=== PATIENT | female | born 1935 ===

== ENCOUNTER 2023-01-26 09:55 | Outpatient (CLI) | payer OTHER | END 2023-01-26 10:00 | disposition home or self-care (01) | LOC: RAD 09:55 | PROVIDERS: ATTEND Orthopaedic Surgery | DX: M25.572 Pain in left ankle and joints of left foot (principal) ==

== ENCOUNTER 2025-02-16 18:09 | Emergency (ER) | payer OTHER ==
[~2025-02-16] VITALS: Ht 160 cm; Wt 54.4 kg
[2025-02-16] MEDS ORDERED: ATORVASTATIN CA40 MG (18:15)
[2025-02-16] MEDS ORDERED: LOSARTAN POTASS25 MG (18:15)
== END 2025-02-16 21:06 | disposition home or self-care (01) ==
LOC: ER 18:09
DX: S09.8XXA Other specified injuries of head, initial encounter (principal); W18.39XA Other fall on same level, initial encounter; Y93.89 Activity, other specified; Y92.512 Supermarket, store or market as the place of occurrence of the external cause; I10 Essential (primary) hypertension